=== PATIENT | female | born 1995 | race Caucasian/White ===

== ENCOUNTER 2016-05-30 15:46 | Outpatient (CLI) | payer MEDICAID | END 2016-05-30 15:47 | disposition critical access hospital (66) | DX: R45.851 Suicidal ideations (principal) | CPT/HCPCS: A0425; A0429 ==

== ENCOUNTER 2016-05-30 16:20 | Emergency (ER) | payer MEDICAID ==
[2016-05-31] MEDS ORDERED: BENZONATATE 100 MG CAPSULE PO STA (01:04)
[2016-05-31] MEDS ORDERED: BENZONATATE 100 MG CAPSULE PO ONE (01:50)
== END 2016-05-31 12:05 ==
DX: R45.851 Suicidal ideations (principal); F32.9 Major depressive disorder, single episode, unspecified; F41.9 Anxiety disorder, unspecified; F20.9 Schizophrenia, unspecified; Z91.5 Personal history of self-harm; Z79.899 Other long term (current) drug therapy
CPT/HCPCS: 36415; 80053; 80306; 80307; 80320; 80329; 81003; 81025; 83690; 84443; 85025; 99284; A9270